=== PATIENT | female | born 1960 | race Caucasian/White ===

== ENCOUNTER 2018-03-27 18:03 | Emergency (ER) | payer MEDICAID ==
[~2018-03-27] VITALS: Ht 167.6 cm; Wt 111.8 kg
[~2018-03-27 18:03] MED LIST: ASPI-1009 PO; B CO1TAB7 PO; CALC-855 PO; CYAN250010 PO; FLUT16SP2 BOTHNARES; GEMF600T PO; LACT1CAP65 PO; LORA10TA65 PO; MAGN500C16 PO; MELO15TA13 PO; MULT-1085 PO; NIA500ERT PO; OMEG-79 PO; OMEP40CA37 PO; PER5325T PO; SELE200T25 PO; TRAM50TA2 PO; TRAZ-146 PO; TURM500C7 PO; UBID1CAP54 PO; VITA400C19 PO
[2018-03-27 18:04] VITALS: BP 139/103
== END 2018-03-27 19:14 | disposition home or self-care (01) ==
LOC: ER 18:04
DX: M79.644 Pain in right finger(s) (principal); E78.00 Pure hypercholesterolemia, unspecified; I10 Essential (primary) hypertension; K21.9 Gastro-esophageal reflux disease without esophagitis; M19.90 Unspecified osteoarthritis, unspecified site; G89.29 Other chronic pain; Z88.5 Allergy status to narcotic agent; Z88.8 Allergy status to other drugs, medicaments and biological substances; Z79.82 Long term (current) use of aspirin; Z79.899 Other long term (current) drug therapy
CPT/HCPCS: 29130; 73130; 99284

== ENCOUNTER 2018-06-07 10:14 | Emergency (ER) | payer OTHER, BC ==
[~2018-06-07] VITALS: Ht 167.6 cm; Wt 114.5 kg
[~2018-06-07 10:14] MED LIST changes: -TRAZ-146 PO; +TRAZ-219 PO
[2018-06-07] MEDS ORDERED: ibuprofen tablet 400 MG TABLET PO ONE (10:50)
[2018-06-07] MEDS ORDERED: cyclobenzaprine 10mg tablet PO ONE (10:50)
[2018-06-07] MEDS ORDERED: CYCL-1 PO (12:38)
[2018-06-07 12:51] VITALS: BP 116/52
== END 2018-06-07 12:53 | disposition home or self-care (01) ==
LOC: ER 10:14
DX: S13.4XXA Sprain of ligaments of cervical spine, initial encounter (principal); S40.012A Contusion of left shoulder, initial encounter; E78.00 Pure hypercholesterolemia, unspecified; I10 Essential (primary) hypertension; K21.9 Gastro-esophageal reflux disease without esophagitis; M19.90 Unspecified osteoarthritis, unspecified site; G89.29 Other chronic pain; Z85.3 Personal history of malignant neoplasm of breast; Z87.891 Personal history of nicotine dependence; Z88.8 Allergy status to other drugs, medicaments and biological substances; Z88.5 Allergy status to narcotic agent; Z79.899 Other long term (current) drug therapy; V49.9XXA Car occupant (driver) (passenger) injured in unspecified traffic accident, initial encounter; Y93.89 Activity, other specified; Y92.89 Other specified places as the place of occurrence of the external cause; Y99.8 Other external cause status
CPT/HCPCS: 72040; 73030; 73120; 99284

== ENCOUNTER 2020-03-15 11:55 | Emergency (ER) | payer BC, OTHER ==
[~2020-03-15] VITALS: Ht 168.9 cm; Wt 123.6 kg
[~2020-03-15 11:55] MED LIST changes: +CYCL-1 PO; +OMEP40CA13 PO; -OMEP40CA37 PO; -TRAZ-219 PO; +TRAZ-256 PO
[2020-03-15 13:36] VITALS: BP 156/95
[2020-03-15] MEDS ORDERED: acetaminophen 325mg tablet PO ONE (13:50)
== END 2020-03-15 14:12 | disposition home or self-care (01) ==
LOC: ER 11:56
DX: S93.692A Other sprain of left foot, initial encounter (principal); G89.29 Other chronic pain; E78.00 Pure hypercholesterolemia, unspecified; I10 Essential (primary) hypertension; K21.9 Gastro-esophageal reflux disease without esophagitis; M19.90 Unspecified osteoarthritis, unspecified site; M79.7 Fibromyalgia; Z85.3 Personal history of malignant neoplasm of breast; Z88.8 Allergy status to other drugs, medicaments and biological substances; Z88.5 Allergy status to narcotic agent; Z79.82 Long term (current) use of aspirin; Z79.899 Other long term (current) drug therapy; W01.0XXA Fall on same level from slipping, tripping and stumbling without subsequent striking against object, initial encounter; Y93.89 Activity, other specified; Y92.89 Other specified places as the place of occurrence of the external cause; Y99.8 Other external cause status
CPT/HCPCS: 73630; 99283

== ENCOUNTER 2021-03-07 16:23 | Emergency (ER) | payer BC ==
[~2021-03-07] VITALS: Ht 167.6 cm; Wt 120.5 kg
[~2021-03-07 16:23] MED LIST changes: +VITA-336 PO; -VITA400C19 PO
[2021-03-07 18:15] LABS: BASOPHILS # (AUTO) 0.1 X10'3 (0-0.2); BASOPHILS % (AUTO) 0.8 % (0-1); EOSINOPHILS # (AUTO) 0.3 X10'3 (0-0.9); EOSINOPHILS % (AUTO) 4.1 % (0-6); HEMATOCRIT 39.4 % (35.0-45.0); LYMPHOCYTES # (AUTO) 2.3 X10'3 (1.1-4.8); LYMPHOCYTES % (AUTO) 34.8 % (21-51); MEAN CORPUSCULAR HEMOGLOBIN 30.4 PG (27.0-31.0); MEAN CORPUSCULAR HGB CONC 33.1 g/dL (33.0-36.5); MEAN PLATELET VOLUME 7.6 FL (7.4-10.4); MONOCYTES # (AUTO) 0.5 X10'3 (0-0.9); MONOCYTES % (AUTO) 7.1 % (2-12); NEUTROPHILS # (AUTO) 3.5 X10'3 (1.8-7.7); NEUTROPHILS % (AUTO) 53.2 % (42-75); PLATELET COUNT 209 X10'3 (140-440); RED BLOOD COUNT 4.28 X10'6 (4.20-5.60); RED CELL DISTRIBUTION WIDTH 13.9 % (11.5-14.5); WHITE BLOOD COUNT 6.6 X10'3 (4.5-11.0)
[2021-03-07 18:15] LABS: URINE HCG NEGATIVE (NEG)
[2021-03-07 18:16] LABS: COLOR,URINE YELLOW (Yellow); GLUCOSE, URINE NEGATIVE (Neg); KETONES,URINE NEGATIVE (Neg); LEUKOCYTE ESTERASE ,URINE LARGE (Neg); NITRITES, URINE NEGATIVE (Neg); OCCULT BLOOD,URINE MODERATE (Neg); PH,URINE 5.5 (4.8-8.0); PROTEIN,URINE NEGATIVE (Neg); UROBILINOGEN,URINE 0.2 E.U/dL (0.2-1.0)
[2021-03-07 18:32] LABS: ALANINE AMINOTRANSFERASE 66 U/L (12-78); ALBUMIN 3.5 G/DL (3.4-5.0); ALKALINE PHOSPHATASE 77 IU/L (46-116); ANION GAP 10 (8-16); ASPARTATE AMINO TRANSFERASE 52 U/L (10-37); BILIRUBIN,TOTAL 0.3 MG/DL (0.1-1.0); BLOOD UREA NITROGEN 16 MG/DL (7-18); BUN/CREATININE RATIO 18.8 (6.6-38.0); CALCIUM 8.5 MG/DL (8.5-10.1); CHLORIDE 104 MMOL/L (99-107); CREATININE 0.85 MG/DL (0.40-0.90); GLUCOSE 99 MG/DL (70-104); LIPASE 150 U/L (73-393); SODIUM 138 MMOL/L (135-145); TOTAL CARBON DIOXIDE 23.7 MMOL/L (24-32); TOTAL PROTEIN 6.9 G/DL (6.4-8.2); eGFR 68 ML/MIN
[2021-03-07 18:34] LABS: UA COLLECTION TYPE CLN CATCH MIDSTREAM
[2021-03-07 18:35] LABS: CLARITY,URINE SLIGHTLY CLOUDY (Clear)
[2021-03-07 18:36] LABS: BACTERIA,URINE FEW /HPF (Neg); SQUAMOUS EPITHELIAL CELL,UR FEW /LPF (FEW); WBC CLUMPS,URINE FEW /HPF (NEGATIVE); WBC,URINE 30-50 /HPF (0-4)
[2021-03-07] MEDS ORDERED: ketorolac trometh. 30mg/ml inj. IV ONE (18:45)
[2021-03-07] MEDS ORDERED: normal saline 1000ML IV soln IVB ONE (18:45)
[2021-03-07] MEDS ORDERED: ondansetron/PF 4mg/2ml inj IV ONE (18:45)
[2021-03-07] MEDS ORDERED: CefTRIAXone 250MG IM Kit w/LIDOcaine IM ONE (20:05)
[2021-03-07] MEDS ORDERED: CefTRIAXone/D5W-Rocephin 1gm 50 ML IV ONE (21:25)
[2021-03-07] MEDS ORDERED: CIPR-202 PO (22:25)
[2021-03-07 22:44] VITALS: BP 25/89
== END 2021-03-07 22:49 | disposition home or self-care (01) ==
LOC: ER 16:23
DX: U07.1 COVID-19 (principal); N10 Acute pyelonephritis; R10.84 Generalized abdominal pain; R06.02 Shortness of breath; R19.7 Diarrhea, unspecified; E78.00 Pure hypercholesterolemia, unspecified; I10 Essential (primary) hypertension; K21.9 Gastro-esophageal reflux disease without esophagitis; M19.90 Unspecified osteoarthritis, unspecified site; G89.29 Other chronic pain; Z87.440 Personal history of urinary (tract) infections; Z85.3 Personal history of malignant neoplasm of breast; Z88.5 Allergy status to narcotic agent; Z88.8 Allergy status to other drugs, medicaments and biological substances; Z79.82 Long term (current) use of aspirin; Z79.2 Long term (current) use of antibiotics; Z79.899 Other long term (current) drug therapy
CPT/HCPCS: 36415; 74176; 80053; 81001; 81025; 83690; 85025; 87088; 96361; 96365; 96375; 99285; J0696; J1885; J2405; J7030

== ENCOUNTER 2022-08-04 07:37 | Day surgery (SDC) | payer BC ==
[2022-08-04] VITALS (17 sets, daily range): BP systolic 125–194; BP diastolic 75–122
[~2022-08-04] VITALS: Ht 167.6 cm; Wt 133.8 kg
[~2022-08-04 07:37] MED LIST changes: -ASPI-1009 PO; -B CO1TAB7 PO; -CALC-855 PO; +CEFD300C21 PO; -CYAN250010 PO; -CYCL-1 PO; +DOCUMENT DATE & TIME OF BETA-BLOCKER PO ONE; -GEMF600T PO; -LACT1CAP65 PO; +LEVO75TA PO; +LIDOCAINE 1%/EPI 1:100,000 inj. 10 ML multi-dose vial ONE; -LORA10TA65 PO; +LOSA50TA64 PO; -MAGN500C16 PO; +METO-395 PO; +MONT-40 PO; -MULT-1085 PO; -NIA500ERT PO; -OMEG-79 PO; -OMEP40CA13 PO; +OMEP40CA21 PO; -PER5325T PO; -SELE200T25 PO; -TRAM50TA2 PO; -TRAZ-256 PO; +TRAZ150T78 PO; -TURM500C7 PO; -UBID1CAP54 PO; +VENL75CA61 PO; -VITA-336 PO; +cocaine 4% topical solution 4ml bottle ONE; +famotidine 20mg tablet PO ONE; +mupirocin 2% ointment 22GM ONE; +oxymetazoline 15 ML nasal spray NS ONE; +oxymetazoline 15 ML nasal spray NS SCH; +ringers solution, lacted 1,000 ML IV SCH
[2022-08-04] MEDS ORDERED: CefTRIAXone/D5W-Rocephin 1gm 50 ML IV ONE (10:10)
[2022-08-04] MEDS ORDERED: tranexamic acid 100mg/ml inj. ONE (10:19)
[2022-08-04] MEDS ORDERED: rocuronium 10mg/ml inj IV ONE (10:41)
[2022-08-04] MEDS ORDERED: sevoflurane 250ml liquid IH ONE (10:41)
[2022-08-04] MEDS ORDERED: fentaNYL/PF 50MCG/1 ML 2ML syringe ONE (10:42)
[2022-08-04] MEDS ORDERED: midazolam 1 mg/ML 2ml injection ONE (10:42)
[2022-08-04] MEDS ORDERED: propofol inj 20 ML IV ONE (10:42)
[2022-08-04] MEDS ORDERED: tranexamic acid inj. 1,000 MG in normal saline 100ml IV soln 90 ML IV ONE (10:46)
[2022-08-04] MEDS ORDERED: enalaprilat dihydrate 2.5mg/2ml vial IV PRN (11:35)
[2022-08-04] MEDS ORDERED: morphine 2 MG/ML inj. syringe IV PRN (11:35)
[2022-08-04] MEDS ORDERED: proCHLORperazine 10 MG/2 ml inj IV PRN (11:35)
[2022-08-04] MEDS ORDERED: labetalol 20mg/4ml (5mg/ml) syringe IV PRN (11:35)
[2022-08-04] MEDS ORDERED: ondansetron/PF 4mg/2ml inj IV PRN (11:35)
[2022-08-04] MEDS ORDERED: meperidine/PF 25mg/ml syringe IV PRN ×2 (11:35)
[2022-08-04] MEDS ORDERED: morphine 4 MG/ML inj SYRINge IV PRN (11:35)
[2022-08-04] MEDS ORDERED: ringers solution, lacted 1,000 ML IV SCH (11:35)
[2022-08-04] MEDS ORDERED: ondansetron/PF 4mg/2ml inj ONE (12:29)
[2022-08-04] MEDS ORDERED: dexamethasone sod phosphate 4mg/ml inj. ONE (12:30)
[2022-08-04] MEDS ORDERED: sugammadex 200mg/2ml injection IV ONE (12:31)
[2022-08-04] MEDS ORDERED: labetalol 20mg/4ml (5mg/ml) syringe IV ONE (12:42)
--- NOTE | 2022-08-04 12:44 | NUR ---
Received from OR via [facility] , accompanied by Anesthesiologist DR RIOS and report given by Anesthesiolgist. PT PRESENTS WITH PIV 20G LEFT HAND, BP 194/[address] RIOS GIVE 5MG LABETOLOL IV PUSH, MEDICATION GIVEN. BILATERAL NASAL PACKING CDI. Addendum: 08/04/22 at 1322 by Leonie Estrada RN, RN Amended: Links added.
[2022-08-04] MEDS: meperidine/PF 25mg/ml syringe IV PRN ×3 (12:54→14:20)
[2022-08-04] MEDS ORDERED: salt irrigation nasal spray 45 ML SPRAY NS PRN (12:55)
[2022-08-04] MEDS: hydrALAZINE 20mg/ml inj. IV PRN ×3 (13:08→13:39)
--- NOTE | 2022-08-04 15:14 | NUR ---
ALL DISCHARGE CRITERIA HAS BEEN MET. VSS, PAIN AT A TOLERABLE LEVEL, VOIDING AND ABLE TO SAFELY AMBULATE AND TRANSFER SELF. IV TAKEN OUT WITHOUT ANY COMPLICATIONS. ALL DISCHARGE INSTRUCTIONS COVERED WITH PATIENT AND ALL QUESTIONS ANSWERED. PATIENT TAKEN OUT VIA WHEELCHAIR TO PERSONAL VEHICLE WHERE FAMILY/FRIEND DROVE PATIENT HOME. Addendum: 08/04/22 at 1521 by Leonie Estrada RN, RN Amended: Links added.
== END 2022-08-04 15:14 | disposition home or self-care (01) ==
LOC: PAS 07:37
PROVIDERS: ATTEND Otolaryngology
DX: J34.2 Deviated nasal septum (principal); J32.9 Chronic sinusitis, unspecified; J32.2 Chronic ethmoidal sinusitis; J32.0 Chronic maxillary sinusitis; J34.3 Hypertrophy of nasal turbinates; J34.9 Unspecified disorder of nose and nasal sinuses; Z79.899 Other long term (current) drug therapy; Z20.822 Contact with and (suspected) exposure to COVID-19; Z98.890 Other specified postprocedural states; Z90.710 Acquired absence of both cervix and uterus; Z87.891 Personal history of nicotine dependence; G47.30 Sleep apnea, unspecified; K21.9 Gastro-esophageal reflux disease without esophagitis; F32.9 Major depressive disorder, single episode, unspecified; M19.90 Unspecified osteoarthritis, unspecified site; G47.33 Obstructive sleep apnea (adult) (pediatric)
CPT/HCPCS: 30140; 30520; 31255; 31267; 36415; 61782; 82948; 87070; 87075; 87077; 87102; 87186; 87635; A6402; C9250; C9803; J0360; J1100; J2175; J2250; J2405; J2704; J3010; J3490; J7030; J7040; J7120; U0003; U0005; Z7506; Z7508; Z7512; A4618; A6449; A7000; J0696